=== PATIENT | female | born 1975 | race Caucasian/White ===

== ENCOUNTER 2018-07-09 22:46 | Emergency (ER) | payer SELFPAY ==
[~2018-07-09] VITALS: Ht 162.6 cm; Wt 62.7 kg
[2018-07-09 22:51] VITALS: BP 117/83
[2018-07-09] MEDS ORDERED: HYDR200T72 PO (22:59)
[2018-07-09] MEDS ORDERED: VENL150C PO (22:59)
[2018-07-09] MEDS ORDERED: DIAZ10TA PO (22:59)
[2018-07-09] MEDS ORDERED: MULTIVITAMIN (22:59)
[2018-07-09] MEDS ORDERED: HYDR25TA6 PO (22:59)
--- NOTE | 2018-07-09 23:04 | NUR ---
PT UNDRESSED SELF COMPLETELY, SPREAD HER LEGS AND STATED "IS THIS WHAT YOU WANT?!" PT WAS INFORMED THIS IS INNAPPROPRIATE BEHAVIOR AND TO CEASE. GOWN PLACED BACK ON PT. PT GIVEN WARM BLANKET. PT IN T1 WITH DOOR AND WINDOWS OPEN.
--- NOTE | 2018-07-09 23:31 | NUR ---
PT DEMANDING BAGEL WITH CREAM CHEESE, TOMATOES, SALT AND PEPPER. PT ALSO WANTS HER MOTHER IN [place] CALLED. PT UNABLE TO PROVIDE CONTACT INFORMATION. POC DISCUSSED. PT BELLIGERENT AT TIMES.
--- NOTE | 2018-07-09 23:45 | NUR ---
LAB AT BEDSIDE FOR BLOOD DRAW. LABS STATES PT REFUSES BLOOD DRAW UNTIL SHE GETS HER BAGEL WITH CREAM CHEASE, SALT AND PEPPER. PT WAS INFOMRED WE DO NOT HAVE BAGELS NOR CREAM CHEESE. PT GIVEN CRACKERS AND JUICE. PT ATE CRACKERS. PT CONTINUES TO REFUSE BLOOD DRAW. INFORMED.
--- NOTE | 2018-07-10 00:01 | NUR ---
PT NOW REQUESTING ANOTHER NURSE. NET DEVELOPER SOFTWARE ENGINEER C INFORMED.
--- NOTE | 2018-07-10 00:10 | NUR ---
pt demanding bagel and cream cheese, told pt we will attempt to get one as coffee cart just opened. pt speaking with dr higgins about poc/ dc with f/u to ent as [facility] stated they provided her also.
--- NOTE | 2018-07-10 00:22 | NUR ---
TASK RN: This RN to bedside to advise pt that she is being discharged and asked her to get dressed.
== END 2018-07-10 00:35 | disposition home or self-care (01) ==
LOC: ED 23:51
DX: S02.2XXA Fracture of nasal bones, initial encounter for closed fracture (principal); I10 Essential (primary) hypertension; Z72.9 Problem related to lifestyle, unspecified; F10.229 Alcohol dependence with intoxication, unspecified; Y04.0XXA Assault by unarmed brawl or fight, initial encounter; Y93.89 Activity, other specified; Y92.89 Other specified places as the place of occurrence of the external cause; Y99.8 Other external cause status
CPT/HCPCS: 99283

== ENCOUNTER 2018-07-17 06:01 | Emergency (ER) | payer SELFPAY ==
[~2018-07-17] VITALS: Ht 165.1 cm; Wt 50.0 kg
[~2018-07-17 06:01] MED LIST: DIAZ10TA PO; HYDR200T72 PO; HYDR25TA6 PO; MULTIVITAMIN; VENL150C PO
[2018-07-17 06:03] VITALS: BP 118/70
== END 2018-07-17 06:27 | disposition home or self-care (01) ==
LOC: ED 06:25
DX: R42 Dizziness and giddiness (principal); I10 Essential (primary) hypertension
CPT/HCPCS: 99283

== ENCOUNTER 2018-07-19 21:57 | Emergency (ER) | payer SELFPAY ==
[~2018-07-19] VITALS: Ht 162.6 cm; Wt 62.0 kg
[2018-07-19 22:00] VITALS: BP 135/70
--- NOTE | 2018-07-20 00:56 | NUR ---
pt d/c with d/c summary. pt ambulates to lobby with steady gait. pt denies any other needs pertaining to this visit.
== END 2018-07-20 01:02 | disposition home or self-care (01) ==
LOC: ED 23:59
DX: R69 Illness, unspecified (principal); Z72.9 Problem related to lifestyle, unspecified; Z59.0 Homelessness; I10 Essential (primary) hypertension
CPT/HCPCS: 99281

== ENCOUNTER 2020-02-28 13:54 | Emergency (ER) | payer MEDICAID ==
[~2020-02-28] VITALS: Ht 162.6 cm; Wt 58.6 kg
[2020-02-28 13:58] VITALS: BP 116/82
--- NOTE | 2020-02-28 14:19 | NUR ---
PT HAS CO OF CHEST PAIN FOR 3 DAYS AFTER USING CRANK. PT STATES SHE IS HOMELESS ANED USES TO STAY UP AT NIGHT. DENIES SOB, CP. CHEST PAIN RESOLVED CURRENTLY.
[2020-02-28 14:40] LABS: BASOPHILS # (AUTO) 0.05 x10^3/uL (0-0.1); BASOPHILS % (AUTO) 1 % (0-1); EOSINOPHILS # (AUTO) 0.03 x10^3/uL (0-0.4); EOSINOPHILS % (AUTO) 1 % (1-7); LYMPHOCYTES # (AUTO) 1.76 x10^3/uL (1-3.4); LYMPHOCYTES % (AUTO) 38 % (22-44); MD NO; MEAN CORPUSCULAR HEMOGLOBIN 33.7 pg (27.0-34.8); MEAN CORPUSCULAR HGB CONC 33.9 g/dL (32.4-35.8); MEAN CORPUSCULAR VOLUME 99.5 fL (80-100); MEAN PLATELET VOLUME 7.7 fL (7.4-10.4); MONOCYTES # (AUTO) 0.55 x10^3/uL (0.2-0.8); MONOCYTES % (AUTO) 12 % (2-9); NEUTROPHILS # (AUTO) 2.29 x10^3/uL (1.8-6.8); NEUTROPHILS % (AUTO) 49 % (42-75); PLATELET COUNT 182 x10^3/uL (130-400); RED BLOOD COUNT 3.89 x10^6/uL (3.82-5.3); RED CELL DISTRIBUTION WIDTH 16.6 % (9.6-15.2)
[2020-02-28 14:51] LABS: ANION GAP 5 mmol/L (5-15); CALCIUM 7.8 mg/dL (8.5-10.1); CHLORIDE 109 mmol/L (98-107); CREATININE 0.46 mg/dL (0.55-1.02)
[2020-02-28 14:52] LABS: ALANINE AMINOTRANSFERASE 50 U/L (12-78); ALBUMIN 3.4 g/dL (3.4-5.0)
[2020-02-28 14:56] LABS: ALKALINE PHOSPHATASE 85 U/L (45-117); BILIRUBIN,TOTAL 0.3 mg/dL (0.2-1.0); TOTAL PROTEIN 6.8 g/dL (6.4-8.2); TROPONIN I < 0.015 ng/mL (0.000-0.045)
--- NOTE | 2020-02-28 15:36 | NUR ---
Patient/Caregiver given discharge instructions and they have confirmed that they understand the instructions. Patient ambulatory with steady gait.
== END 2020-02-28 15:47 | disposition home or self-care (01) ==
LOC: ED 15:40
DX: R07.89 Other chest pain (principal); R94.31 Abnormal electrocardiogram [ECG] [EKG]; I10 Essential (primary) hypertension
CPT/HCPCS: 36415; 71045; 80053; 84484; 85025; 93005; 99285

== ENCOUNTER 2020-04-29 02:17 | Emergency (ER) | payer MEDICAID ==
[~2020-04-29] VITALS: Ht 162.6 cm; Wt 57.1 kg
--- NOTE | 2020-04-29 02:30 | NUR ---
Patient BIB ambulance c/o anxiety and depression for "awhile." Patient states she has a hx of the same and should be on meds. She hasn't taken meds in years. Tonight she feels worse than usual. Denies SI. Patient is in NAD. Respirations even and unlabored.
[2020-04-29] MEDS ORDERED: hydrOXyzine 50MG TABLET ONE (02:43)
[2020-04-29 03:07] LABS: BASOPHILS % (AUTO) 0 % (0-1); EOSINOPHILS % (AUTO) 0 % (1-7); LYMPHOCYTES % (AUTO) 6 % (22-44); MEAN CORPUSCULAR HEMOGLOBIN 33.8 pg (27.0-34.8); MEAN PLATELET VOLUME 8.6 fL (7.4-10.4); MONOCYTES % (AUTO) 25 % (2-9); NEUTROPHILS % (AUTO) 69 % (42-75); PLATELET COUNT 110 x10^3/uL (130-400); RED BLOOD COUNT 4.01 x10^6/uL (3.82-5.3); RED CELL DISTRIBUTION WIDTH 14.1 % (9.6-15.2)
[2020-04-29 03:08] LABS: MD NO
[2020-04-29 03:12] LABS: ANION GAP 9 mmol/L (5-15); CALCIUM 8.4 mg/dL (8.5-10.1); CHLORIDE 91 mmol/L (98-107); CREATININE 0.73 mg/dL (0.55-1.02)
[2020-04-29 03:16] LABS: TROPONIN I < 0.015 ng/mL (0.000-0.045)
[2020-04-29] MEDS ORDERED: ACETAMINOPHEN 325 MG TABLET PO ONE (04:00)
[2020-04-29] MEDS ORDERED: ACETAMINOPHEN 325 MG TABLET ONE (04:05)
[2020-04-29 04:10] VITALS: BP 101/71
== END 2020-04-29 04:13 | disposition home or self-care (01) ==
LOC: ED 04:07
DX: R07.89 Other chest pain (principal); R05 Cough; R50.9 Fever, unspecified; E87.1 Hypo-osmolality and hyponatremia; F41.9 Anxiety disorder, unspecified; Z72.9 Problem related to lifestyle, unspecified; R00.0 Tachycardia, unspecified; F17.210 Nicotine dependence, cigarettes, uncomplicated; I10 Essential (primary) hypertension
CPT/HCPCS: 36415; 71045; 80048; 82040; 84484; 85025; 93005; 99285; 99406; Q0177

== ENCOUNTER 2020-05-10 18:17 | Emergency (ER) | payer MEDICAID ==
--- NOTE | 2020-05-10 18:35 | NUR ---
PT ON THE WALL WITH EMS AWAITING ROOM ASSIGNMENT. PT BEGAN GOING THROUGH BELONGINGS AND ATTEMPTED TO OPEN A CANNED BEER. EMS AND HOSPITAL STAFF INFORMED PT THAT DRINKING ETOH IS NOT PERMITTED ON HOSPITAL PROPERTY. PT STATED THAT SHE WOULD JUST LEAVE SO SHE COULD DRINK. PT DENIES ANY SI/HI. AMBULATORY C STEADY GAIT. A&O X 4. PT ELOPED FROM ER AMBULANCE BAY FOLLOWING DISCUSSION WITH HEALTHCARE PROVIDERS.
== END 2020-05-10 18:38 | disposition left against medical advice (07) ==
LOC: ED 18:30
DX: F33.1 Major depressive disorder, recurrent, moderate (principal); Z53.21 Procedure and treatment not carried out due to patient leaving prior to being seen by health care provider